=== PATIENT | male | born 1955 | race African-American/Black ===

== ENCOUNTER 2023-01-29 21:30 | Emergency (ER) | payer MEDICARE, OTHER ==
[~2023-01-29] VITALS: Ht 177.8 cm; Wt 77.3 kg
[2023-01-29 21:34] VITALS: BP 167/93
[2023-01-29] MEDS ORDERED: GABA-1181 PO (21:44)
[2023-01-29] MEDS ORDERED: TAMS-13 PO (21:44)
[2023-01-29] MEDS ORDERED: CHOL400T56 PO (21:44)
[2023-01-29] MEDS ORDERED: LIDOCAINE 1% 10 ML VIAL SQ ONE (23:15)
[2023-01-29] MEDS ORDERED: CLIN-142 PO (23:53)
[2023-01-30] MEDS ORDERED: CLINDAMYCIN HCL 150 MG CAPSULE PO ONE
== END 2023-01-30 00:07 | disposition home or self-care (01) ==
LOC: EMS 21:30
DX: L02.414 Cutaneous abscess of left upper limb (principal); F17.210 Nicotine dependence, cigarettes, uncomplicated; Z90.89 Acquired absence of other organs
CPT/HCPCS: 99283; J3490

== ENCOUNTER 2024-09-05 11:54 | Emergency (ER) | payer MEDICARE, OTHER ==
[~2024-09-05] VITALS: Ht 177.8 cm; Wt 85.0 kg
[~2024-09-05 11:54] MED LIST: CLIN-142 PO
[2024-09-05 12:08] VITALS: TEMP 98.3
[2024-09-05 12:38] LABS: BASOPHILS % (AUTO) 0.7 % (0.0-2.0); EOSINOPHILS % (AUTO) 2.2 % (1.0-6.0); HEMATOCRIT 34.4 % (41-53); HEMOGLOBIN 11.4 g/dL (13.5-17.5); LYMPHOCYTES # (AUTO) 2.4 K/uL (1.0-4.8); LYMPHOCYTES % (AUTO) 34.8 % (22.0-44.0); MEAN CORPUSCULAR HEMOGLOBIN 29.2 pg (26.0-34.0); MEAN CORPUSCULAR HGB CONC 33.2 G/dL (31.0-37.0); MEAN CORPUSCULAR VOLUME 88 fL (80-100); MONOCYTES # (AUTO) 0.5 K/uL (0.1-1.0); MONOCYTES % (AUTO) 7.5 % (2.0-9.0); NEUTROPHILS # (AUTO) 3.9 K/uL (1.8-7.7); NEUTROPHILS % (AUTO) 54.8 % (40.0-70.0); PLATELET COUNT (AUTO) 172 K/uL (150-450); RED CELL DISTRIBUTION WIDTH 13.9 % (11.5-14.5)
[2024-09-05 12:46] LABS: ANION GAP 8 mmol/L (8-16); CALCIUM, TOTAL 8.6 mg/dL (8.8-10.5); CARBON DIOXIDE 27 mmol/L (22-29); CHLORIDE 104 mmol/L (98-107); CREATININE 2.01 mg/dL (0.60-1.30); GLOMERULAR FILTR. RATE CALC 40 mL/min (>60); GLUCOSE,RANDOM 108 mg/dL (70-110); POTASSIUM 3.8 mmol/L (3.5-5.1); SODIUM SERUM 139 mmol/L (136-145); UREA NITROGEN, BLOOD 35 mg/dL (7-18)
[2024-09-05 12:55] LABS: TROPONIN I-HIGH SENSITIVITY 8 ng/L (<76)
[2024-09-05 13:08] LABS: B-TYPE NATRIURETIC PEPTIDE < 5 pg/mL (0-100)
[2024-09-05 15:00] VITALS: BP 133/73; PULSE 74; RESP 16; O2SAT 99
== END 2024-09-05 15:02 | disposition home or self-care (01) ==
LOC: EMS 11:54
DX: I95.1 Orthostatic hypotension (principal); I12.9 Hypertensive chronic kidney disease with stage 1 through stage 4 chronic kidney disease, or unspecified chronic kidney disease; F31.9 Bipolar disorder, unspecified; F20.9 Schizophrenia, unspecified; F17.210 Nicotine dependence, cigarettes, uncomplicated; Z90.89 Acquired absence of other organs; Z82.49 Family history of ischemic heart disease and other diseases of the circulatory system
CPT/HCPCS: 80048; 83880; 84484; 85025; 93005; 99284